=== PATIENT | male | born 1990 | race Hispanic/Latino ===

== ENCOUNTER 2019-01-02 13:05 | Emergency (ER) | payer SELFPAY | END 2019-01-02 15:18 | disposition home or self-care (01) | LOC: ERS 13:05 | DX: S29.012A Strain of muscle and tendon of back wall of thorax, initial encounter (principal); F17.210 Nicotine dependence, cigarettes, uncomplicated; X50.1XXA Overexertion from prolonged static or awkward postures, initial encounter | CPT/HCPCS: 99283 ==

== ENCOUNTER 2019-11-06 14:47 | Emergency (ER) | payer SELFPAY ==
[2019-11-06] MEDS ORDERED: Ketorolac Tromethamine 30 MG/ML VIAL ONE (15:30)
[2019-11-06] MEDS ORDERED: Cyclobenzaprine 10 MG TAB ONE (15:46)
--- NOTE | 2019-11-06 15:49 | RAD ---
Radiograph sacrum and coccyx 3 views: HISTORY: 29-year-old male with sacrococcygeal pain due to blunt trauma, acute FINDINGS: Sacral arcuate lines appear to be preserved on AP views. Nonspecific appearance of focal transverse b and of lucency across mid-lower sacrum on lateral view. SI joints appear normal. Focal sclerotic lesion in right ilium very close to SI joint is probably a bone island. IMPRESSION: 1. No definitive evidence of sacrococcygeal fracture. 2. Recommend noncontrast MRI of sacrum and coccyx, on a nonemergent basis, as the most sensitive moda lity for detecting occult sacrococcygeal acute or subacute fractures.
== END 2019-11-06 16:34 | disposition home or self-care (01) ==
LOC: ERS 14:47
DX: S39.012A Strain of muscle, fascia and tendon of lower back, initial encounter (principal); F17.210 Nicotine dependence, cigarettes, uncomplicated; X58.XXXA Exposure to other specified factors, initial encounter; Y93.72 Activity, wrestling
CPT/HCPCS: 72220; 96372; J1885

== ENCOUNTER 2022-01-29 06:44 | Emergency (ER) | payer BC, SELFPAY ==
[2022-01-29] MEDS ORDERED: cefTRIAXone\\ROCEPHIN 500 MG VIAL ONE (08:57)
[2022-01-29] MEDS ORDERED: Lidocaine 1% MPF 2 ML VIAL ONE (08:57)
[2022-01-29 22:20] LABS: Chlam.trachomatis by PCR,Urine Not Detected (NotDetected)
== END 2022-01-29 09:12 | disposition home or self-care (01) ==
LOC: ERS 06:44
DX: N48.89 Other specified disorders of penis (principal); F17.210 Nicotine dependence, cigarettes, uncomplicated
CPT/HCPCS: 87491; 87591; 96372; 99283; J0696

== ENCOUNTER 2022-02-18 00:02 | Emergency (ER) | payer BC | END 2022-02-18 00:23 | disposition home or self-care (01) | LOC: ERS 00:02 | DX: S81.801A Unspecified open wound, right lower leg, initial encounter (principal); X58.XXXA Exposure to other specified factors, initial encounter | CPT/HCPCS: 99283 ==